=== PATIENT | female | born 1950 | race Caucasian/White ===

== ENCOUNTER 2020-06-18 12:21 | Outpatient (REF) | payer OTHER, SELFPAY | END 2020-06-18 12:22 | disposition home or self-care (01) | LOC: HO.LNP 12:21 | PROVIDERS: Visit Provider Hospitalist | DX: Z20.828 Contact with and (suspected) exposure to other viral communicable diseases (principal) | CPT/HCPCS: 87635 ==

== ENCOUNTER 2021-06-27 08:40 | Outpatient (REF) | payer OTHER, SELFPAY ==
[2021-06-27 12:13] LABS: Alanine Aminotransferase 18 U/L (0-31); Anion Gap 12 (12-20); Aspartate Amino Transferase 21 U/L (5-31); Blood Urea Nitrogen 12 mg/dL (9-16); Calcium 9.9 mg/dL (8.4-10.2); Carbon Dioxide 29 mmol/L (22-29); Chloride 105 mmol/L (96-108); Cholesterol 201 mg/dL; Estimated Glomerular Filt Rate > 60; Glucose Fasting 94 mg/dL (60-99); HDL Cholesterol 76 mg/dL; LDL Cholesterol Calculated 115 mg/dl; Potassium 4.9 mmol/L (3.3-5.1); Sodium 141 mmol/L (135-145); Triglycerides 53 mg/dL
[2021-06-27 12:16] LABS: Vitamin D 25-OH Total 53.1 ng/mL (>30)
== END 2021-06-27 08:41 | disposition home or self-care (01) ==
LOC: HO.HMGCLDS 08:40
PROVIDERS: PCP Internal Medicine; Visit Provider Internal Medicine
DX: Z00.01 Encounter for general adult medical examination with abnormal findings (principal); I10 Essential (primary) hypertension; Z78.0 Asymptomatic menopausal state
CPT/HCPCS: 36415; 80048; 80061; 82306; 84450; 84460

== ENCOUNTER 2022-02-15 13:43 | Outpatient (REF) | payer MEDICARE, SELFPAY ==
[2022-02-15 16:30] LABS: MANUAL DIFF FLAG NO
[2022-02-15 16:34] LABS: Basophils Absolute Auto 0.1 X10*3/uL (0.0-0.2); Basophils Percent Auto 0.9 % (0-2); Eosinophils Absolute Auto 0.1 X10*3/uL (0.0-0.4); Eosinophils Percent Auto 1.7 % (0-4); Hemoglobin 13.7 g/dl (12.0-16.0); Imm Gran Abs Auto 0.01 X10*3/uL (0.00-0.03); Imm Gran Pct Auto 0.2 % (0.0-0.4); Lymphocytes Absolute Auto 1.9 X10*3/uL (1.2-4.9); Mean Corpuscular HGB Conc 31.1 g/dl (31.0-35.0); Mean Corpuscular Hemoglobin 25.4 pg (27.0-33.0); Mean Corpuscular Volume 81.6 fL (80.0-98.0); Mean Platelet Volume 10.6 fL (9.4-12.3); Monocytes Absolute Auto 0.4 X10*3/uL (0.1-1.2); Neutrophils Absolute Auto 2.9 x10*3/uL (2.0-8.3); Neutrophils Percent Auto 53.2 % (45-73); Platelet Count 234 X10*3/uL (160-400); Red Blood Count 5.39 X10*6/uL (4.20-5.50); Red Cell Distribution Width 14.2 % (11.0-16.0); White Blood Count 5.4 X10*3/uL (4.8-10.8)
[2022-02-15 16:39] LABS: Glucose Fasting 82 mg/dL (60-99)
== END 2022-02-15 13:44 | disposition home or self-care (01) ==
LOC: HO.HMGCLDS 13:43
PROVIDERS: Visit Provider Internal Medicine
DX: Z01.818 Encounter for other preprocedural examination (principal)
CPT/HCPCS: 36415; 82947; 85025

== ENCOUNTER 2023-02-05 08:30 | Outpatient (REF) | payer MEDICARE, SELFPAY ==
--- NOTE | ~2023-02-05 | XR_ITS ---
EXAMINATION: XR SHOULDER, RIGHT CLINICAL INFORMATION: Pain COMPARISON: None available. TECHNIQUE: Three views of the right shoulder. FINDINGS: Bone alignment is normal. No fracture or dislocation. The glenohumeral joint is normal. There may be mild joint space narrowing at the acromioclavicular joint. Soft tissues are unremarkable. XR/XR shoulder RT min 2V IMPRESSION: Mild degenerative changes at the acromioclavicular joint.
== END 2023-02-05 08:31 | disposition home or self-care (01) ==
LOC: HO.HOSX 08:30
PROVIDERS: Visit Provider Orthopaedic Surgery
DX: M75.51 Bursitis of right shoulder (principal)
CPT/HCPCS: 20610; 73030; 99202; J1100

== ENCOUNTER 2023-02-22 09:34 | Outpatient (REF) | payer MEDICARE, SELFPAY ==
[2023-02-22 12:09] LABS: Alanine Aminotransferase 15 U/L (0-31); Albumin Level 4.6 g/dL (3.5-5.0); Alkaline Phosphatase 86 U/L (39-117); Anion Gap 9 (12-20); Aspartate Amino Transferase 18 U/L (5-31); Bilirubin Total 0.7 mg/dL (0.0-1.0); Blood Urea Nitrogen 20 mg/dL (9-16); Calcium 9.4 mg/dL (8.4-10.2); Carbon Dioxide 28 mmol/L (22-29); Chloride 108 mmol/L (96-108); Cholesterol 216 mg/dL; Estimated Glomerular Filt Rate > 60; Glucose Fasting 101 mg/dL (60-99); HDL Cholesterol 84 mg/dL; LDL Cholesterol Calculated 123 mg/dl; Potassium 4.3 mmol/L (3.3-5.1); Sodium 141 mmol/L (135-145); TSH reflex Free T4 0.71 uIU/mL (0.32-4.0); Total Protein 7.6 g/dL (6.5-8.0); Triglycerides 49 mg/dL; Vitamin D 25-OH Total 61.4 ng/mL (>30)
== END 2023-02-22 09:35 | disposition home or self-care (01) ==
LOC: HO.HMGCLDS 09:34
PROVIDERS: PCP Internal Medicine; Visit Provider Internal Medicine
DX: Z00.01 Encounter for general adult medical examination with abnormal findings (principal); R68.89 Other general symptoms and signs; M85.88 Other specified disorders of bone density and structure, other site
CPT/HCPCS: 36415; 80053; 80061; 82306; 84443; 86787

== ENCOUNTER 2023-04-19 12:20 | Outpatient (AMB) | payer MEDICARE, SELFPAY ==
--- NOTE | 2023-04-19 12:24 | A.OFFVIS_ITS ---
Intake Vital Signs 04/19/23 12:26 Height 5 ft Weight 147 lb BMI 28.7 Intake Visit Reasons: OV - Right Shoulder Intake Note: Samaria is a 72 year old right hand dominant female who presents today for a follow up of her right shoulder bursitis. Last Injection 02/05/23. This injection was not helpful and she would like to discuss other treatment options. Allergies No Known Allergies Allergy (Verified 02/22/23 09:17) HPI OV - Right Shoulder HPI Details Samaria Abraham is a 72-year-old female who presents today to the office for a follow-up of right shoulder. The patient's last injection was on 02/05/23, which provided no relief. She describes sub deltoid pain with overhead activity and pain at night. Supervised exercises have not been helpful. [facility] Medical History (Updated 04/19/23 @ 12:50 by Wilfredo Ceballos MD) Hx of gallstones Immunity status testing Internal derangement of right shoulder Osteopenia of lumbar spine Tubular adenoma of colon Uterine prolapse Surgical History History of vaginal hysterectomy Hx laparoscopic cholecystectomy Hx of appendectomy Hx of colonoscopy Hx of tonsillectomy Family History Father Diabetes mellitus Mother Diabetes mellitus CVA (cerebral vascular accident) Sister Hypertension Social History Housing: House Patient Tobacco Use Status: Never used Tobacco e-Cigarette/Vaping Use: Never Used service: No 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 occupational status: retired 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 Cognitive needs: No Hearing needs: No Vision needs: No Physical Exam Vital Signs: BMI result Body Mass Index 28.7 Const General: no acute distress, alert and awake Orientation/consciousness: patient oriented x3 HEENT Head: Yes normocephalic and Yes atraumatic Eyes EOM: EOMs intact bilaterally Resp Effort & Inspection: normal respiratory effort and able to speak in complete sentences Cardio Jugular venous distension: no JVD Skin General skin exam: turgor normal Rashes: no rashes Neuro General: patient oriented x3 Extrem Other: 90/130/45 Painful but negative mepty can Negative lift off Psych Appearance: grossly normal Affect: normal affect Attitude: cooperative Results Reviewed Results Reviewed: I personally reviewed relevant radiographs. 02/05/23: XR SHOULDER, RIGHT FINDINGS: Bone alignment is normal. No fracture or dislocation. The glenohumeral joint is normal. There may be mild joint space narrowing at the acromioclavicular joint. Soft tissues are unremarkable. IMPRESSION: Mild degenerative changes at the acromioclavicular joint. Assessment & Plan Assessment & Plan (1) Internal derangement of right shoulder: Code(s): M24.811 - Other specific joint derangements of right shoulder, not elsewhere classified Plan: Active and healthy 72 yo with ongoing right shoulder pain that has not improved with activity modification, injections or PT. MRI ordered to evaluate RTX. Orders: Orders MR shoulder RT wo con 04/19/23 M24.811 - Other specific joint derangements of right shoulder, not elsewhere classified Coding Level of Care Code Est Pt Level 4 (22496) Diagnoses Internal derangement of right shoulder M24.811
[2023-04-19 12:26] VITALS: BMI 28.7
== END 2023-04-19 12:58 | disposition home or self-care (01) ==
PROVIDERS: PCP Internal Medicine; Visit Provider Orthopaedic Surgery
DX: M24.811 Other specific joint derangements of right shoulder, not elsewhere classified (principal)
CPT/HCPCS: 99214

== ENCOUNTER → 2023-04-19 12:20 | Outpatient (BNVA) | payer MEDICARE, SELFPAY | PROVIDERS: PCP Internal Medicine; Visit Provider Orthopaedic Surgery | DX: M24.811 Other specific joint derangements of right shoulder, not elsewhere classified (principal) | CPT/HCPCS: 99212 ==

== ENCOUNTER 2023-06-08 07:51 | Outpatient (REF) | payer MEDICARE, SELFPAY | END 2023-06-08 07:52 | disposition home or self-care (01) | LOC: HO.MRI 07:51 | PROVIDERS: PCP Internal Medicine; Visit Provider Orthopaedic Surgery | DX: M24.811 Other specific joint derangements of right shoulder, not elsewhere classified (principal) | CPT/HCPCS: 73221 ==

== ENCOUNTER 2023-06-15 11:09 | Outpatient (AMB) | payer MEDICARE, SELFPAY ==
--- NOTE | 2023-06-15 11:40 | A.OFFVIS_ITS ---
Intake Vital Signs 06/15/23 11:52 Height 5 ft Weight 147 lb BMI 28.7 Intake Visit Reasons: ov-MRI Shoulder RT review Intake Note: Samaria is a 72 year old right hand dominant female who presents today for an MRI review of her right shoulder. Patient reports that she is feeling about the same. Allergies No Known Allergies Allergy (Verified 02/22/23 09:17) HPI ov-MRI Shoulder RT review HPI Details Samaria is a 72 year old woman who presents for an MRI review of her right shoulder pain. She continues to complain of pain with daily activity, worse with overhead activity but primarily at night, in a sub-deltoid distribution. She found no relief from activity modification, injections, or PT. She feels limited in her activity and is frustrated that she cannot do everything she wants to. [facility] Medical History (Updated 06/15/23 @ 12:13 by Angel Bolden) Internal derangement of right shoulder Immunity status testing Hx of gallstones Uterine prolapse Osteopenia of lumbar spine Tubular adenoma of colon Surgical History (Reviewed 04/19/23 @ 12:26 by Jeni Dickey [facility]) Hx laparoscopic cholecystectomy History of vaginal hysterectomy Hx of colonoscopy Hx of appendectomy Hx of tonsillectomy Family History Father Diabetes mellitus Mother Diabetes mellitus CVA (cerebral vascular accident) Sister Hypertension Social History Housing: House Patient Tobacco Use Status: Never used Tobacco e-Cigarette/Vaping Use: Never Used service: No 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 occupational status: retired 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 Cognitive needs: No Hearing needs: No Vision needs: No Review of Systems Const All systems reviewed & are unremarkable except as noted in HPI and below Physical Exam Vital Signs: BMI result Body Mass Index 28.7 Const General: no acute distress, alert and awake Orientation/consciousness: patient oriented x3 HEENT Head: Yes normocephalic and Yes atraumatic Eyes EOM: EOMs intact bilaterally Resp Effort & Inspection: normal respiratory effort and able to speak in complete sentences Cardio Jugular venous distension: no JVD Skin General skin exam: turgor normal Rashes: no rashes Neuro General: patient oriented x3 Extrem Other: Right Shoulder 90/130/45 Painful but negative empty can Negative lift off Psych Appearance: grossly normal Affect: normal affect Attitude: cooperative Results Reviewed Results Reviewed: I personally reviewed relevant MR images 1. Supraspinatus tendinosis with irregular full-thickness partial tearing anteriorly extending to the posterior articular surface and articular surface of the infraspinatus tendon. The full-thickness component to the tear measures 1.8 x 2.3 cm. Mild subscapularis tendinosis with articular surface partial tearing. 2. Mild acromioclavicular osteoarthritis with subacromial spurring. 3. Small glenohumeral joint effusion. Assessment & Plan Assessment & Plan (1) Right rotator cuff tear: Code(s): M75.101 - Unspecified rotator cuff tear or rupture of right shoulder, not specified as traumatic Plan: This is a 72 year old woman with a right RTC tear and ~6 months of pain. She has pain with daily activity, worse with overhead activity and at night. She has failed conservative treatment options and feels limited in her ADLs. I discussed her diagnosis and treatment options. I recommend a right shoulder RTC repair. I discussed the risks, benefits, and alternatives including, but not limited to, the risk of pain, infection, stiffness, need for further surgery as well as potential medical complications such as blood clots, pulmonary embolism and cardiac complications. I discussed the recovery timeline and process as well as the importance of PT. Samaria is a good candidate for this surgery, and she wishes to proceed with this decision. She will speak with Sheri to schedule this procedure. Plan Scribed for Wilfredo Ceballos MD by Angel Bolden medical assisting program director, on 06/15/23 at 12:15 PM, EST. Coding Level of Care Code Est Pt Level 4 (89159) Diagnoses Right rotator cuff tear M75.101
[2023-06-15 11:52] VITALS: BMI 28.7
== END 2023-06-15 12:16 | disposition home or self-care (01) ==
PROVIDERS: PCP Internal Medicine; Visit Provider Orthopaedic Surgery
DX: M75.121 Complete rotator cuff tear or rupture of right shoulder, not specified as traumatic (principal)
CPT/HCPCS: 99214

== ENCOUNTER → 2023-06-15 11:09 | Outpatient (BNVA) | payer MEDICARE, SELFPAY | PROVIDERS: PCP Internal Medicine; Visit Provider Orthopaedic Surgery | DX: M75.101 Unspecified rotator cuff tear or rupture of right shoulder, not specified as traumatic (principal) | CPT/HCPCS: 99212 ==

== ENCOUNTER 2023-07-04 06:02 | Day surgery (SDC) | payer MEDICARE, SELFPAY ==
[2023-07-02 08:49] VITALS: BMI 28.7
--- NOTE | 2023-07-03 10:13 | HO.ANESPROP2 ---
Documented by User: Sonia Gupta NP 07/03/23 10:16 HPI - Anesthesia Eval Consult details Narrative: 72yo F for Right Shoulder Rotator Cuff Repair PMFSH Active Problems Active Problems: All Active Problems (Updated 06/15/23 @ 12:13 by Angel Bolden) Right rotator cuff tear (Acute) Internal derangement of right shoulder (Acute) Immunity status testing (Acute) Bursitis of right shoulder (Acute) Osteopenia of lumbar spine (Acute) Glaucoma (Acute) Past Medical History Medical History (Updated 06/15/23 @ 12:13 by Angel Bolden) Internal derangement of right shoulder Immunity status testing Hx of gallstones Uterine prolapse Osteopenia of lumbar spine Tubular adenoma of colon Family History Family History Father Diabetes mellitus Mother Diabetes mellitus CVA (cerebral vascular accident) Sister Hypertension Surgical History Surgical History Hx laparoscopic cholecystectomy History of vaginal hysterectomy Hx of colonoscopy Hx of appendectomy Hx of tonsillectomy Social History Social History Housing: House Patient Tobacco Use Status: Never used Tobacco e-Cigarette/Vaping Use: Never Used Use of substances other than those prescribed or required for medical reasons: No Are you DNR?: No Advance Directives: No Advance Directives Information Provided: Yes service: No 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 occupational status: 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 Cognitive needs: No Hearing needs: No Vision needs: No Meds Allergies Allergy/AdvReac Type Severity Reaction Status Date / Time No Known Allergies Allergy Verified 02/22/23 09:17 Home Medications Medication Instructions Recorded Confirmed Last Taken Type ascorbate calcium (vitamin C) 500 1 g PO DAILY 02/15/22 Unknown History mg tablet calcium carbonate 600 mg calcium 600 mg PO DAILY 02/15/22 Unknown History (1,500 mg) tablet (Calcium) cholecalciferol (vitamin D3) 50 50 mcg PO DAILY 02/15/22 Unknown History mcg (2,000 unit) capsule omega-3 fatty acids 500 mg capsule 500 mg PO DAILY 02/15/22 Unknown History dorzolamide 22.3 mg-timolol 6.8 1 drp ophthalmic (eye) BID 02/22/23 Unknown History mg/mL eye drops Exam Exam Date and Time: July 03, 2023 1013 Height,Weight and Vital Signs: Height 5 ft Weight 66.678 kg Pertinent Lab Results Pertinent Lab Results: Laboratory Tests 02/22/23 09:41 Sodium 141 Potassium 4.3 Chloride 108 Carbon Dioxide 28 BUN 20 H Creatinine 0.67 Assessment and Plan Assessment Anesthesia Assessment: Chart Reviewed Documented by User: Sukh Miguel MD 07/04/23 08:04 [facility] Past Medical History Medical History (Updated 06/15/23 @ 12:13 by Angel Bolden) Internal derangement of right shoulder Immunity status testing Hx of gallstones Uterine prolapse Osteopenia of lumbar spine Tubular adenoma of colon Family History Family History Father Diabetes mellitus Mother Diabetes mellitus CVA (cerebral vascular accident) Sister Hypertension Family history of problems with anesthesia: No Surgical History Surgical History Hx laparoscopic cholecystectomy History of vaginal hysterectomy Hx of colonoscopy Hx of appendectomy Hx of tonsillectomy History of Problems with Anesthesia: No Social History Social History Housing: House Patient Tobacco Use Status: Never used Tobacco e-Cigarette/Vaping Use: Never Used Use of substances other than those prescribed or required for medical reasons: No Are you DNR?: No Advance Directives: No Advance Directives Information Provided: Yes service: No 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 occupational status: 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 Cognitive needs: No Hearing needs: No Vision needs: No Meds Allergies Allergy/AdvReac Type Severity Reaction Status Date / Time No Known Allergies Allergy Verified 02/22/23 09:17 Home Medications Medication Instructions Recorded Confirmed Last Taken Type ascorbate calcium (vitamin C) 500 1 g PO DAILY 02/15/22 Unknown History mg tablet calcium carbonate 600 mg calcium 600 mg PO DAILY 02/15/22 Unknown History (1,500 mg) tablet (Calcium) cholecalciferol (vitamin D3) 50 50 mcg PO DAILY 02/15/22 Unknown History mcg (2,000 unit) capsule omega-3 fatty acids 500 mg capsule 500 mg PO DAILY 02/15/22 Unknown History dorzolamide 22.3 mg-timolol 6.8 1 drp ophthalmic (eye) BID 02/22/23 Unknown History mg/mL eye drops Exam Airway Mallampati Class: II TM Dist: >3cm Neck ROM: Full Heart: rrr Lungs: cta Assessment and Plan Assessment Anesthesia Assessment: Anesthesia Plan Discussed Final Anesthetic Review Family History of Problems with Anesthesia: No History of Problems with Anesthesia: No NPO: Yes ASA Class: II Final Preanesthetic Review: No Changes in Pt Med Stat and Anes Risks/Benef Reviewed Patient Risk: Low Procedure Risk: Intermediate Anesthetic Plan Anesthetic Plan: GA and Regional Block Disposition: Standard PACU
[2023-07-04 06:20] VITALS: BP 178/89; PULSE 82; RESP 16; TEMP 36.7; O2SAT 100
[2023-07-04] MEDS: Lactated Ringers 1,000 ML 100 ML IVCONT (06:40)
--- NOTE | 2023-07-04 07:47 | MHC.SHP ---
Pre-Procedural Eval Section A Date of Service: 07/04/23 The patient is an INPATIENT: No Changes since office visit: No Cold of Flu in the past 2 weeks, No New Medical Problems, No Changes in Medication and No Patient answered all questions The History & Physical has been completed within 30 days and I have reviewed it.: Yes Section B Chief Complaint: Unspecified rotator cuff tear or rupture of right Allergies: Allergies Allergy/AdvReac Type Severity Reaction Status Date / Time No Known Allergies Allergy Verified 02/22/23 09:17 Plan I have reviewed the history and physical and performed a pertinent physical examination on my patient. No changes have occurred unless specified. Time Spent With Patient Time: Total time managing care of this patient today ____ minutes.
--- NOTE | 2023-07-04 08:51 | P.BOP_ITS ---
Brief Operative Note Date of Service: 07/04/23 Pre-op diagnosis: Right RTC tear Post-op diagnosis: same Procedure: Right RTC repair with SAD Implants: [employer] Helacoil double loaded x 2 and Helacoil knotless x2 Surgeon: Wilfredo Ceballos MD Anesthesia: GETA and regional Was an Wireless Internet Installer used for this Procedure?: Yes Wireless Internet Installer: Brandi Messer Estimated blood loss (mL): 25 IV fluids (mL): 600 Pathology: none sent Condition: stable Disposition: PACU
[2023-07-04 09:10] VITALS: BP 141/72; PULSE 68; RESP 10; TEMP 35.9; O2SAT 100
[2023-07-04 09:15] VITALS: BP 135/75; PULSE 74; RESP 12; O2SAT 100
[2023-07-04 09:20] VITALS: BP 132/65; PULSE 71; RESP 12; O2SAT 97
[2023-07-04 09:25] VITALS: BP 123/68; PULSE 73; RESP 14; TEMP 35.9; O2SAT 96
[2023-07-04 09:40] VITALS: BP 141/71; PULSE 69; RESP 14; TEMP 36; O2SAT 96
--- NOTE | 2023-07-09 11:38 | W.PM.OPN ---
Operative Note Operative Note Date of Service: 07/04/23 Narrative: Date of Service: 07/04/23 Pre-op diagnosis: Right RTC tear Post-op diagnosis: same Procedure: Right RTC repair with SAD Implants: [employer] Helacoil double loaded x 2 and Helacoil knotless x2 Surgeon: Wilfredo Ceballos MD Anesthesia: GETA and regional Was an Data Warehousing Specialist used for this Procedure?: Yes Data Warehousing Specialist: Brandi Messer Estimated blood loss (mL): 25 IV fluids (mL): 600 Pathology: none sent Condition: stable Disposition: PACU Procedure in detail: Patient was brought to the operating room and placed the the beach chair position. All bony prominences were well padded and the limb was prepped and draped in standard sterile fashion. A time out was called to identify proper site, proper procedure and proper surgeon. IV antibiotics per weight were administered. I began by making a posterolateral stab incision with a 15 blade. A blunt trochar was placed into the glenohumeral joint and I insufflated the joint with saline and a 30 degree arthroscope was placed. I established an outside- in anterior portal just distal to the biceps tendon. I then began my inspection of the glenohumeral joint. There was mild anterior interval synovitis. There were minimal cartilage changes at the inferior glenoid and no humeral head changes. There was a full thickness undersurface RTC tear. The subcapularis was intact. I debrided the loose cartilage of the glenoid and the superior labrum. I then removed the trochar and entered the subacromial space. A direct lateral portal was then established and I performed a bursectomy. The cuff was then examined. There was a full thickness tear of the supra and infraspinatus without retraction. The tear was mobile. I placed two medial row double loaded anchors after using a tap just adjacent to the articular cartilage and then brought the suture limbs ( 8) through the medial cuff. I then debrided the bare area down to bleeding bone and, using a cross bridge configuration, brought 4 limbs to each of two lateral 5.0 anchors. This re-approximated the cuff anatomy anatomically. I perfromed a 5mm subacromial decompression. Once I was satisfied with the repair final images were captured and I removed all instrumentation. Portals were closed with nylon. Patient was placed in an abduction sling, extubated and brought to the recovery room in stable condition. There were no known complications.
== END 2023-07-04 10:20 | disposition home or self-care (01) ==
PROVIDERS: PCP Internal Medicine; Visit Provider Orthopaedic Surgery
PROC: (CPT 29827; principal; 2023-07-04 07:30)
DX: M75.121 Complete rotator cuff tear or rupture of right shoulder, not specified as traumatic (principal)
CPT/HCPCS: 29827; 29826; C1713; J0131; J0171; J0690; J1100; J1885; J2405; J2795

== ENCOUNTER → 2023-07-04 06:02 | Outpatient (BNV) | payer MEDICARE, SELFPAY | PROVIDERS: PCP Internal Medicine; Visit Provider Orthopaedic Surgery | DX: M75.121 Complete rotator cuff tear or rupture of right shoulder, not specified as traumatic (principal) | CPT/HCPCS: 29827 ==

== ENCOUNTER 2023-07-10 10:32 | Outpatient (AMB) | payer MEDICARE, SELFPAY ==
--- NOTE | 2023-07-10 10:35 | A.OFFVIS_ITS ---
Intake Vital Signs 07/10/23 10:44 Height 5 ft 1 in Weight 140 lb BMI 26.4 Intake Visit Reasons: PO - Rt RTC Repair 07/04/23 NE Intake Note: Samaria is a 72 year old female who presents today for a post op appointment s/p right RTC repair 07/04/23 NE. Patient reports she is doing slightly feeling better. She states that she noticed a burn brianna on her chest. Allergies No Known Allergies Allergy (Verified 07/10/23 10:36) HPI PO - Rt RTC Repair 07/04/23 NE HPI Details 72-year-old female who presents in the o ffice today 6 days status post right shoulder rotator cuff repair, which was performed on 07/04/[address] Ceballos. The patient reports she is doing slightly better. She states she has noticed skin tear on her chest. [facility] Medical History (Updated 07/10/23 @ 10:43 by Diann Dela Cruz) Internal derangement of right shoulder Immunity status testing Hx of gallstones Uterine prolapse Osteopenia of lumbar spine Tubular adenoma of colon Surgical History (Updated 07/05/23 @ 13:47 by Brandi Messer PA-C) Hx laparoscopic cholecystectomy History of vaginal hysterectomy Hx of colonoscopy Hx of appendectomy Hx of tonsillectomy Family History Father Diabetes mellitus Mother Diabetes mellitus CVA (cerebral vascular accident) Sister Hypertension Social History Housing: House Patient Tobacco Use Status: Never used Tobacco e-Cigarette/Vaping Use: Never Used service: No 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 occupational status: retired 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 Sutures intact. No surround erythema or drainage. Resolving ecchymosis as well as a superficial skin tear over the right lateral aspect of the sternum. No signs of infection. Forward flexion and abduction to 45 degrees. External rotation to neutral. NVI. Assessment & Plan Assessment & Plan (1) Right rotator cuff tear: Code(s): M75.101 - Unspecified rotator cuff tear or rupture of right shoulder, not specified as traumatic Qualifiers: Rotator cuff tear extent: unspecified tear extent Rotator cuff tear trauma status: unspecified whether traumatic Qualified Code(s): M75.101 - Unspecified rotator cuff tear or rupture of right shoulder, not specified as traumatic Plan Ms. Abraham is a 72-year-old female who presents in the office today 6 days status post right shoulder rotator cuff repair, which was performed on 07/04/[address] Ceballos. The patient reports she is doing slightly better. She states she has noticed a burn brianna on her chest. Sutures were removed and steri-stripes were applied while in the office today. The patient does not currently having any physical therapy scheduled at this time. Therefore, the office has placed a call to the physical therapy office for them to reach out to her to get her scheduled as soon as possible. The sling will remain in place until 6 weeks post op. Follow up will be in 4 weeks, or sooner if needed. Patient Instructions: Scribed for Brandi Messer PA-C by Diann Dela Cruz certified medical records coder, on 07/10/2023 at 10:38 am, EST. Coding Level of Care Code Global (39880) Diagnoses Tear of right rotator cuff, unspecified tear extent, unspecified whether traumatic M75.101 Rotator cuff tear extent: unspecified tear extent Rotator cuff tear trauma status: unspecified whether traumatic
[2023-07-10 10:44] VITALS: BMI 26.4
== END 2023-07-10 11:02 | disposition home or self-care (01) ==
PROVIDERS: PCP Internal Medicine; Visit Provider Physician Assistant
DX: M75.101 Unspecified rotator cuff tear or rupture of right shoulder, not specified as traumatic (principal)
CPT/HCPCS: 99024

== ENCOUNTER → 2023-07-10 10:32 | Outpatient (BNVA) | payer MEDICARE, SELFPAY | PROVIDERS: PCP Internal Medicine; Visit Provider Physician Assistant ==

== ENCOUNTER 2023-08-09 10:57 | Outpatient (AMB) | payer MEDICARE, SELFPAY ==
--- NOTE | 2023-08-09 10:59 | MHC.OFFVIS ---
Intake Intake Visit Reasons: PO - Rt RTC Repair 07/04/23 NE-F/U Intake Note: Samaria is a 72 year old female who presents today for a post op appointment s/p right RTC repair 07/04/23 NE. Patient reports that that she is doing well, with no concerns. She is working with physical therapy. Allergies No Known Allergies Allergy (Verified 07/10/23 10:36) HPI PO - Rt RTC Repair 07/04/23 NE-F/U HPI Details Samaria is a 73 year old woman who presents ~5 weeks S/P right RTC repair with SAD. She says she is doing well overall and has been working with PT. She continues to wear her sling and says her shoulder feels good . She has some difficulty & pain with any attempts at overhead activity. FORMERLY [facility], [facility] Medical History (Updated 07/10/23 @ 10:43 by Diann Dela Cruz) Internal derangement of right shoulder Immunity status testing Hx of gallstones Uterine prolapse Osteopenia of lumbar spine Tubular adenoma of colon Surgical History (Updated 07/05/23 @ 13:47 by Brandi Messer PA-C) Hx laparoscopic cholecystectomy History of vaginal hysterectomy Hx of colonoscopy Hx of appendectomy Hx of tonsillectomy Family History Father Diabetes mellitus Mother Diabetes mellitus CVA (cerebral vascular accident) Sister Hypertension Social History Housing: House Patient Tobacco Use Status: Never used Tobacco e-Cigarette/Vaping Use: Never Used service: No Current occupational status: retired 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 Cognitive needs: No Hearing needs: No Vision needs: No Review of Systems Const All systems reviewed & are unremarkable except as noted in HPI and below Physical Exam Const General: no acute distress, alert and awake Orientation/consciousness: patient oriented x3 HEENT Head: Yes normocephalic and Yes atraumatic Eyes EOM: EOMs intact bilaterally Resp Effort & Inspection: normal respiratory effort and able to speak in complete sentences Cardio Jugular venous distension: no JVD Skin General skin exam: turgor normal Rashes: no rashes Neuro General: patient oriented x3 Extrem Other: inc c/d/i Psych Appearance: grossly normal Affect: normal affect Attitude: cooperative Assessment & Plan Assessment & Plan (1) S/P rotator cuff repair: Code(s): Z98.890 - Other specified postprocedural states Plan: Jyoti Beasley d/c sliong in one week and I reviewed precautions and exercises. f/u 6 weeks Plan Scribed for Wilfredo Ceballos MD by Angel Bolden, regional medical director, on 08/09/23 at 11:25 AM, EST. Coding Level of Care Code Global (24949) Diagnoses S/P rotator cuff repair Z98.890
== END 2023-08-09 13:09 | disposition home or self-care (01) ==
PROVIDERS: PCP Internal Medicine; Visit Provider Orthopaedic Surgery
DX: Z98.890 Other specified postprocedural states (principal)
CPT/HCPCS: 99024

== ENCOUNTER → 2023-08-09 10:57 | Outpatient (BNVA) | payer MEDICARE, SELFPAY | PROVIDERS: PCP Internal Medicine; Visit Provider Orthopaedic Surgery | DX: Z47.89 Encounter for other orthopedic aftercare (principal); Z98.890 Other specified postprocedural states | CPT/HCPCS: 99212 ==

== ENCOUNTER 2023-09-20 08:29 | Outpatient (AMB) | payer MEDICARE, SELFPAY ==
--- NOTE | 2023-09-20 07:47 | A.OFFVIS_ITS ---
Intake Vital Signs 09/20/23 08:39 Height 5 ft 1 in Weight 144 lb BMI 27.2 Intake Visit Reasons: PO - Rt RTC Repair 07/04/23 NE Intake Note: Samaria is a 72 year old female who presents today for a post op appointment s/p right RTC repair 07/04/23 NE. She reports overall she is feeling well. She reports some tightness in her shoulder but no pain. Allergies No Known Allergies Allergy (Verified 09/20/23 08:38) Medication List - Last Reconciled 09/20/23 by Kristi Mackey, RN ascorbate calcium (vitamin C) 1 g PO DAILY calcium carbonate (Calcium) 600 mg PO DAILY cholecalciferol (vitamin D3) 50 mcg PO DAILY dorzolamide-timolol 22.3-6.8 mg/mL 1 drp ophthalmic (eye) BID morphine ER (MS Contin) 15 mg PO Q12H 3 days omega-3 fatty acids 500 mg PO DAILY oxycodone-acetaminophen 5-325 mg (Percocet) 1 tab PO Q4-6H PRN 7 days HPI PO - Rt RTC Repair 07/04/23 NE HPI Details Samaria is a 73 year old woman who presents ~11 weeks S/P right RTC repair with SAD. She says she is doing well overall and is happy with the results of her surgery. She denies any pain but reports feeling some tightness in her shoulder with certain motion. She has been working with PT on her ROM, and d/c her sling as instructed. REPLACED BY [facility] Medical History (Updated 07/10/23 @ 10:43 by Diann Dela Cruz) Internal derangement of right shoulder Immunity status testing Hx of gallstones Uterine prolapse Osteopenia of lumbar spine Tubular adenoma of colon Surgical History (Updated 07/05/23 @ 13:47 by Brandi Messer PA-C) Hx laparoscopic cholecystectomy History of vaginal hysterectomy Hx of colonoscopy Hx of appendectomy Hx of tonsillectomy Family History Father Diabetes mellitus Mother Diabetes mellitus CVA (cerebral vascular accident) Sister Hypertension Social History Housing: House Patient Tobacco Use Status: Never used Tobacco e-Cigarette/Vaping Use: Never Used service: No Current occupational status: retired 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 Cognitive needs: No Hearing needs: No Vision needs: No Review of Systems Const All systems reviewed & are unremarkable except as noted in HPI and below Physical Exam Vital Signs: BMI result Body Mass Index 27.2 Const General: no acute distress, alert and awake Orientation/consciousness: patient oriented x3 HEENT Head: Yes normocephalic and Yes atraumatic Eyes EOM: EOMs intact bilaterally Resp Effort & Inspection: normal respiratory effort and able to speak in complete sentences Cardio Jugular venous distension: no JVD Skin General skin exam: turgor normal Rashes: no rashes Neuro General: patient oriented x3 Extrem Other: 10 deg ER 90 deg abd 120 combined gh L5 Psych Appearance: grossly normal Affect: normal affect Attitude: cooperative Assessment & Plan Assessment & Plan (1) S/P rotator cuff repair: Code(s): Z98.890 - Other specified postprocedural states Plan: Doign well but still tight in ER PT for continue ER and light ressitance training as per RTC repair protocol Plan Prepared for Wilfredo Ceballos MD by Angel Bolden, medical insurance coding specialist, on 09/20/23 at 8:40 AM, EST. Coding Level of Care Code Global (06140) Diagnoses S/P rotator cuff repair Z98.890
[2023-09-20 08:39] VITALS: BMI 27.2
== END 2023-09-20 09:02 | disposition home or self-care (01) ==
PROVIDERS: PCP Internal Medicine; Visit Provider Orthopaedic Surgery
DX: Z98.890 Other specified postprocedural states (principal)
CPT/HCPCS: 99024

== ENCOUNTER → 2023-09-20 08:29 | Outpatient (BNVA) | payer MEDICARE, SELFPAY | PROVIDERS: PCP Internal Medicine; Visit Provider Orthopaedic Surgery | DX: Z98.890 Other specified postprocedural states (principal) | CPT/HCPCS: 99212 ==

== ENCOUNTER 2023-10-08 07:00 | Outpatient (RCR) | payer MEDICARE, SELFPAY ==
--- NOTE | 2023-07-24 08:39 | MHC.PT.EP ---
[facility] [place] Office [place] Office [place] Office [address] Kory Whelan [address] [phone] F: [phone] F: [phone] F: [phone] F: [phone] Physical Therapy Plan of Care Date of Evaluation: 07/19/23 Date of Surgery: 07/04/23 Diagnosis: R RTC repair with SAD Assessment: Pt is a 73yo female who presents 16 days s/p arthroscopic RTC repair with SAD. Both supraspinatus and infraspinatus repaired. Pt with moderate pain, good compliance with post-op precautions. However, she is having difficulty sleeping due to discomfort. Skilled PT indicated to progress patient safely through post-op rehabilitation protocol with goal to protect healing tissue, promote full ROM as tolerated, normalize scapulohumeral rhythm to return to PLOF. Pt in agreement with POC and is motivated to participate. Frequency and Duration: The patient will be seen 2x/week x 6 weeks Short Term Goals: 1. Pt will achieve full PROM in 3 weeks R shoulder. 2. Pt will report <3/10 pain with improved ability to sleep by 25% in 3 weeks. 3. Pt will be I with all AAROM and isometric exercises in 3 weeks. [facility] Goals: 1. In 6 weeks, (8 weeks post-op), patient will achieve full AROM R shoulder all planes. 2. In 6 weeks, patient will be able to brush her hair with R UE without difficulty. 3. In 6 weeks, improve SPADI disability score by 50%. Treatment Plan: Modalities to reduce pain, spasms and effusion. Manual therapy to restore motion and function. Therapeutic exercise to improve strength and flexibility. Neuromuscular re-education for posture and balance. Therapeutic activities to return to functional activities of daily living. Electronically signed by: Kira Merino PT, DPT Please sign and return to therapist. Thank you for your referral.
--- NOTE | 2024-03-26 12:22 | MHC.PT.DC ---
[facility] [place] Office [place] Office [place] Office [address] Kory Whelan [address] [phone] F: [phone] F: [phone] F: [phone] F: [phone] Physical Therapy Discharge Report Diagnosis: R RTC repair with SAD Date of Surgery: 07/04/23 Date of Evaluation: 07/19/23 Date of Discharge: 10/15/23 Treatments to Date: 15 Cancellations to Date: No Shows to Date: Discharge Status: Achieved Goals Improved Function Independent with HEP Discharge Summary: Pt is a 73yo female who participated in PT s/p arthroscopic RTC repair with SAD. Pt with good participation, and her ROM and pain greatly improved. Pt progressed safely through post-op rehabilitation protocol return to function phase. Pt is I with HEP and is performing ADLs at a normal level. D/C to HEP at this time. Thank you for this referral. Electronically signed by: Kira Merino PT, DPT Please sign and return to therapist. Thank you for your referral.
== END 2024-03-26 12:24 | disposition home or self-care (01) ==
LOC: HO.PT 07:00
PROVIDERS: Absent Provider Orthopaedic Surgery; PCP Internal Medicine; Visit Provider Physician Assistant
DX: M75.101 Unspecified rotator cuff tear or rupture of right shoulder, not specified as traumatic (principal); Z98.890 Other specified postprocedural states
CPT/HCPCS: 97110; 97140; 97162

== ENCOUNTER 2023-10-31 08:06 | Outpatient (AMB) | payer MEDICARE, SELFPAY ==
[2023-10-31 08:12] VITALS: BMI 27.2
--- NOTE | 2023-10-31 08:12 | A.OFFVIS_ITS ---
Intake Vital Signs 10/31/23 08:12 Height 5 ft 1 in Weight 144 lb BMI 27.2 Intake Visit Reasons: Newprob- LT index finger pain Intake Note: Samaria 73 laurie old right hand dominant female presents today for a new problem visit for her left index finger pain. States that she has been having a burning pain at the base of the left 2nd digit. She only had pain with ROM and if she bumps it or tries to open a jar. Denies numbness and tingling. Allergies No Known Allergies Allergy (Verified 10/31/23 08:15) HPI Newprob- LT index finger pain HPI Details Samaria is a 73 year old right hand dominant woman who presents with complaints of left index finger pain. She reports pain over the A1 varghese of her left index finger with ROM, use, or when struck against something. She says grabbing motions such as to open a jar are painful for her. She describes her pain as burning and has been present for ~4 months. She denies any prior treatment. She denies any falls or known history. She denies any locking of her finger, but reports a hx of bilateral trigger thumbs and a trigger finger on her right hand, which was managed with an injection & surgeries. She says she had a right RTC repair, DOS: 07/04/23, and has been using her left hand more frequently while she recovers. [facility] Medical History (Updated 10/31/23 @ 08:39 by Angel Bolden) Internal derangement of right shoulder Immunity status testing Hx of gallstones Uterine prolapse Osteopenia of lumbar spine Tubular adenoma of colon Surgical History (Updated 07/05/23 @ 13:47 by Brandi Messer PA-C) Hx laparoscopic cholecystectomy History of vaginal hysterectomy Hx of colonoscopy Hx of appendectomy Hx of tonsillectomy Family History Father Diabetes mellitus Mother Diabetes mellitus CVA (cerebral vascular accident) Sister Hypertension Social History Housing: House Patient Tobacco Use Status: Never used Tobacco e-Cigarette/Vaping Use: Never Used service: No Current occupational status: retired 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 Cognitive needs: No Hearing needs: No Vision needs: No Review of Systems Const All systems reviewed & are unremarkable except as noted in HPI and below Physical Exam Vital Signs: BMI result Body Mass Index 27.2 Const General: cooperative, healthy appearing and no acute distress Orientation/consciousness: patient oriented x3 HEENT Head: Yes normocephalic and Yes atraumatic Eyes EOM: EOMs intact bilaterally Resp Effort & Inspection: normal respiratory effort and able to speak in complete sentences Cardio Jugular venous distension: no JVD Skin General skin exam: turgor normal Rashes: no rashes Neuro General: patient oriented x3 Extrem Other: Evaluation of Left Upper Extremity: The patient is alert, oriented, and in no acute distress Neuro: Median, Ulnar, Radial nerves motor and sensory intact and sensation is normal to the tips of all digits Vascular: Cap refill brisk ROM: She can make a fist and extend all her digits No locking or catching, however she is most tender over the left index finger a1 varghese Skin: No lacerations or abrasions. General: No Ecchymosis. No Erythema or evidence of infection. Radiographs: 3 views of the left hand, with attention to the index finger, were taken and viewed by me today in clinic. They show no fractures or dislocations. Psych Appearance: grossly normal Affect: normal affect Attitude: cooperative Office Procedures Fracture Care Details: No fracture, injection Fracture Billing Code: Fracture Billing Code Assessment & Plan Assessment & Plan (1) Tenosynovitis of finger: Code(s): M65.9 - Synovitis and tenosynovitis, unspecified Plan Assessment & Plan: 1. Left index finger pre-trigger tenosynovitis I educated her about this condition I discussed non-operative treatment options The patient would like to proceed with an injection Injection #1: The risks and benefits of a steroid injection including but not limited to risk of damage to blood vessels, nerves, tendons, infection, skin bleaching, failure to improve symptoms, increased pain, and possible need for further injections or other intervention were discussed with the patient and the patient wishes to proceed with the steroid injection. Once consent was obtained, I sterilely prepped the area over the A1 varghese of the flexor tendon sheath of the left index finger. I then injected the flexor tendon sheath with a combination of 1 mL of dexamethasone (4mg/ml), and 1% lidocaine. The patient tolerated the procedure well with no complications. If the patient continues to have locking and catching 4-6 weeks following this injection, they may call to schedule appointment to discuss alternative treatment options Scribed for Arti Minor MD by Angel Bolden certified medical technician, on 10/31/23 at 8:40 AM, EST. Orders: Orders XR hand LT min 3V Today M79.642 - Pain in left hand Coding Level of Care Code New Pt Level 3 (65012) Diagnoses Tenosynovitis of finger M65.9 CPT Codes Fracture Care - Fracture Billing Code: Fracture Billing Code ([id number])
== END 2023-10-31 08:53 | disposition home or self-care (01) ==
PROVIDERS: PCP Internal Medicine; Visit Provider Orthopaedic Surgery
DX: M65.842 Other synovitis and tenosynovitis, left hand (principal)
CPT/HCPCS: 20550; 99203; 99213

== ENCOUNTER 2023-10-31 10:50 | Outpatient (REF) | payer MEDICARE, SELFPAY ==
--- NOTE | ~2023-10-31 | XR_ITS ---
EXAMINATION: XR HAND, LEFT CLINICAL INFORMATION: Pain. COMPARISON: None available. TECHNIQUE: PA, lateral, and oblique views of the left hand. FINDINGS: No fracture or subluxation. Mild multifocal degenerative osteoarthritis with trace joint space narrowing and minimal subcortical sclerosis. No osseous erosions. No abnormal soft tissue calcifications. No significant soft tissue finding. XR/XR hand LT min 3V IMPRESSION: No acute fractures or malalignment. Mild multifocal degenerative osteoarthritis.
== END 2023-10-31 10:51 | disposition home or self-care (01) ==
LOC: HO.HOSX 10:50
PROVIDERS: Visit Provider Orthopaedic Surgery
DX: M79.642 Pain in left hand (principal); M65.9 Synovitis and tenosynovitis, unspecified
CPT/HCPCS: 20550; 73130; 99202; J1100

== ENCOUNTER 2023-12-27 08:19 | Outpatient (AMB) | payer MEDICARE, SELFPAY ==
[2023-12-27 08:22] VITALS: BMI 27.2
--- NOTE | 2023-12-27 08:22 | MHC.OFFVIS ---
Vital Signs 12/27/23 08:22 Height 5 ft 1 in Weight 144 lb BMI 27.2 Intake Visit Reasons: ov-Rt RTC Repair 07/04/23 NE Intake Note: Samaria is a 72 year old right hand dominant female who presents today for a post op appointment s/p right RTC repair 07/04/23 NE. at her last visit she was instructed to continue light resistance training and RTC protocol. Patient reports that she is doing well, she has some mild soreness Allergies No Known Allergies Allergy (Verified 10/31/23 08:15) HPI HPI ov-Rt RTC Repair 07/04/23 NE: Details: Samaria is a 72 year old right hand dominant female who presents today for a post op appointment s/p right RTC repair 07/04/23 NE. at her last visit she was instructed to continue light resistance training and RTC protocol. Patient reports that she is doing well, she has some mild soreness PFSH Medical History Internal derangement of right shoulder Immunity status testing Hx of gallstones Uterine prolapse Osteopenia of lumbar spine Tubular adenoma of colon Surgical History Hx laparoscopic cholecystectomy History of vaginal hysterectomy Hx of colonoscopy Hx of appendectomy Hx of tonsillectomy Family History Father Diabetes mellitus Mother Diabetes mellitus CVA (cerebral vascular accident) Sister Hypertension Social History Housing: House Patient Tobacco Use Status: Never used Tobacco e-Cigarette/Vaping Use: Never Used service: No Current occupational status: retired 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 f/u PRN Coding Level of Care Code Est Pt Level 3 (98378) Diagnoses S/P rotator cuff repair Z98.890
== END 2023-12-27 11:11 | disposition home or self-care (01) ==
PROVIDERS: PCP Internal Medicine; Visit Provider Orthopaedic Surgery
DX: Z47.89 Encounter for other orthopedic aftercare (principal); M75.121 Complete rotator cuff tear or rupture of right shoulder, not specified as traumatic
CPT/HCPCS: 99212

== ENCOUNTER → 2023-12-27 08:19 | Outpatient (BNVA) | payer MEDICARE, SELFPAY | PROVIDERS: PCP Internal Medicine; Visit Provider Orthopaedic Surgery | DX: Z47.89 Encounter for other orthopedic aftercare (principal) | CPT/HCPCS: 99212 ==

== ENCOUNTER 2025-01-30 07:45 | Outpatient (REF) | payer MEDICARE, SELFPAY ==
--- NOTE | ~2025-01-30 | MM_ITS ---
EXAMINATION: DXA BONE DENSITY AXIAL HISTORY: M85.88 TECHNIQUE: Distill Dual energy absorptiometry (DEXA) of the lumbar spine, total left hip, and femoral neck was performed. COMPARISON: Comparison is made with the prior examination dated 10/25/2006. FINDINGS: The bone mineral density of the lumbar spine is 1.065, corresponding to a T-score of -1.0, and a Z-score of 1.0. This is indicative of normal bone mineral density. This represents a BMD change of 2.1% compared to the prior exam. This is not statistically significant. The bone mineral density of the left total hip is 0.969, corresponding to a T-score of -0.3, and a Z-score of 1.5. This is indicative of normal bone mineral density. This represents a BMD change of -4.3% compared to the prior exam. This is statistically significant. The bone mineral density of the left femoral neck is 0.998, corresponding to a T-score of -0.3, and a Z-score of 1.7. This is indicative of normal bone mineral density. This represents a BMD change of 5.2% compared to the prior exam. FRACTURE RISK: The FRAX index suggests a ten year probability of major osteoporotic fracture of 4.5%, and of hip fracture 0.4%. MM/XR DEXA axial skeleton IMPRESSION: Based on bone mineral density, and according to World Health Organization (WHO) criteria, the diagnosis is consistent with normal bone mineral density. All bone density values are in grams per centimeter squared (g/cm2). Statistically, 68% of repeat scans fall within 1 SD (+/- 0.010 g/cm2 for AP spine L1-L4) and 1 SD (+/- 0.012 g/cm2 for femur total) FRAX is a trademark of the [employer]'s [place] [facility] Metabolic Bone Disease, a World Health Organization (WHO) Collaborating Center. Electronically signed by: Rick Thrasher MD 01/30/2025 08:42 AM EDT
--- NOTE | ~2025-01-30 | MM_ITS ---
EXAMINATION: MM SCREENING DIGITAL BREAST TOMOSYNTHESIS, BILATERAL CLINICAL INFORMATION: Screening. Asymptomatic. COMPARISON: Mammography: Comparison is made with available priors TECHNIQUE: Digital breast mammography with tomosynthesis is performed in both the craniocaudal and mediolateral oblique views along with computer-aided detection (CAD). FINDINGS: There are scattered areas of fibroglandular density (ACR BI-RADS breast composition Category b). There are no significant masses, abnormal calcifications, or other abnormalities. MM/MM tomosynthesis screening BI IMPRESSION: No mammographic evidence of malignancy. ASSESSMENT: BI-RADS BI-RADS 1 - Negative RECOMMENDATION: Routine annual mammography screening. 1 year F/U This examination should not preclude the clinical evaluation of a suspicious palpable abnormality. This patient's information was entered into a reminder system with a target due date for their next mammogram. Electronically signed by: Lluvia Conway DO 02/06/2025 05:04 PM EDT
--- OUTSIDE RECORDS SUMMARY | 2025-01-30 07:48 | XMS_ITS | Patient Health Record ---
Author Organization [facility] Address [address] [place] [address] Support Name Relationship Address Phone PHI ROLDAN Guarantor Unknown Reason For Referral No Information Medications Medication SIG (Take, Route, Fr equency, Duration) Notes Start Date End Date Status Vitamin C 500MG 1 ORAL twice daily for -3 [facility] 03/13/20 12 Active Estrace 0.1MG/GM 0.5 grams Vaginal tw ice weekly for -3 [facility] 06/03/2014 Active Calcium-Carb 600 + D 1 ORAL daily for -3 [facility] 2 Active Problems Problem Type SNOMED Code ICD Code Onset Dates Problem Status W/U Status Risk Notes Problem Gynecological examination normal ([id number]) Routine gynecological examination (V72.31) Active confirmed Diag Plan Of Treatment No Information Insurance Providers Payer Name Payer Address Payer Phone Subscriber Number Group Number Insured Name Patient Relationship to Insured Coverage Start Date Coverage End Date [facility] [address] [place] [address] [id number] PHI ROLDAN Self - patient is the insured
== END 2025-01-30 07:46 | disposition home or self-care (01) ==
LOC: HO.MAMMO 07:45
PROVIDERS: PCP Internal Medicine; Visit Provider Internal Medicine
DX: Z12.31 Encounter for screening mammogram for malignant neoplasm of breast (principal); M85.88 Other specified disorders of bone density and structure, other site
CPT/HCPCS: 77063; 77067; 77080

== ENCOUNTER → 2025-01-30 08:15 | Outpatient (BNV) | payer MEDICARE, SELFPAY | PROVIDERS: PCP Internal Medicine; Visit Provider Radiology Diagnostic Radiology | DX: E28.39 Other primary ovarian failure (principal) | CPT/HCPCS: 77080 ==

== ENCOUNTER 2025-02-26 07:56 | Outpatient (REF) | payer MEDICARE, SELFPAY ==
[2025-02-26 10:09] LABS: Hematocrit 39.6 % (37.0-47.0); Hemoglobin 12.4 g/dl (12.0-16.0)
[2025-02-26 10:33] LABS: Anion Gap 14 (12-20); Blood Urea Nitrogen 9 mg/dL (9-16); Calcium 9.3 mg/dL (8.4-10.2); Carbon Dioxide 27 mmol/L (22-29); Chloride 103 mmol/L (96-108); Cholesterol 155 mg/dL (<200); Estimated Glomerular Filt Rate > 60; Glucose Fasting 105 mg/dL (60-99); HDL Cholesterol 41 mg/dL (>40); LDL Cholesterol Calculated 101 mg/dL (<100); Potassium 4.6 mmol/L (3.3-5.1); Sodium 139 mmol/L (135-145); Triglycerides 69 mg/dL (<150)
== END 2025-02-26 07:57 | disposition home or self-care (01) ==
LOC: HO.HMGCLDS 07:56
PROVIDERS: PCP Internal Medicine; Visit Provider Internal Medicine
DX: Z00.01 Encounter for general adult medical examination with abnormal findings (principal); R03.0 Elevated blood-pressure reading, without diagnosis of hypertension; Z78.0 Asymptomatic menopausal state; Z71.89 Other specified counseling; Z13.30 Encounter for screening examination for mental health and behavioral disorders, unspecified; Z13.31 Encounter for screening for depression; Z13.220 Encounter for screening for lipoid disorders; Z13.89 Encounter for screening for other disorder
CPT/HCPCS: 36415; 80048; 80061; 82306; 85014; 85018; 96127; 99397; 99497

== ENCOUNTER 2025-02-26 07:56 | Outpatient (AMB) | payer MEDICARE, SELFPAY ==
--- NOTE | 2025-02-26 07:59 | MHC.PC.OV ---
Vital Signs 02/26/25 08:04 02/26/25 08:45 Height 5 ft Weight 143 lb BMI 27.9 BP 152/80 H 130/80 Blood Pressure Location Lt brachial Rt brachial Position Sitting Sitting Respiration 16 Pulse 94 Pulse Source Pulse Oximeter Temp 98.4 F Temp Source Oral Pulse Oximetry (%) 96 Oxygen Delivery Method Room Air Intake Visit Reasons: ANNUAL PE Intake Note: Pt is here today for her PE: Last mammogram 01/30/25, bone density scan 01/30/25, colonoscopy 01/02/23 Allergies No Known Allergies Allergy (Verified 02/26/25 08:26) Medication List - Last Reconciled 02/26/25 by Marina Nava MD ascorbate calcium (vitamin C) 1 g PO DAILY calcium carbonate (Calcium 600) 600 mg PO DAILY cholecalciferol (vitamin D3) 50 mcg PO DAILY dorzolamide-timolol 22.3-6.8 mg/mL 1 drp ophthalmic (eye) BID omega-3 fatty acids 500 mg PO DAILY Tobacco use date assessed: 02/26/25 Fall risk assessment: No Falls in past year Last assessed Fall Risk: 02/26/25 Dental Screening Dental Screen Date: 02/26/25 Did you have a dental visit in the last 12 months?: Yes Did you have a dental problem in the last 6 months where you did not have access to dental care?: No Was dental information given to patient?: Patient has dentist HPI ANNUAL PE HPI Details 74-year-old lady history of 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 She has been checking her blood pressure at home and it has always been running around 130/80 or lower. Has been exercising and following healthy diet, feels well with no complaints at present time. She is currently followed by [facility] for her glaucoma. She is up-to-date with her breast cancer and colon cancer screening, with last mammogram done 01/30/25 together with her, bone density scan , both of which showed normal findings. She is up-to-date with her colon cancer screening with last colonoscopy done 01/02/[address] Johnson which showed normal findings but due to history of tubular adenoma in the past, repeat colonoscopy again to be done in 2027. [facility] Medical History (Updated 02/26/25 @ 08:54 by Marina Nava MD) Bursitis of right shoulder Right rotator cuff tear White coat syndrome without hypertension Internal derangement of right shoulder Immunity status testing Hx of gallstones Uterine prolapse Osteopenia of lumbar spine Tubular adenoma of colon Surgical History (Updated 02/26/25 @ 08:54 by Marina Nava MD) S/P rotator cuff repair Hx laparoscopic cholecystectomy History of vaginal hysterectomy Hx of colonoscopy Hx of appendectomy Hx of tonsillectomy Family History Father Diabetes mellitus Mother Diabetes mellitus CVA (cerebral vascular accident) Sister Hypertension Social History Housing: House Patient Tobacco Use Status: Never used Tobacco e-Cigarette/Vaping Use: Never Used service: No 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 1. Little interest or pleasure in doing things: not at all 2. Feeling down, depressed, or hopeless: not at all 3. Trouble falling or staying asleep, or sleeping too much: not at all 4. Feeling tired or having little energy: not at all 5. Poor appetite or overeating: not at all 6. Feeling bad about yourself - or that you are a failure or have let yourself or your family down: not at all 7. Trouble concentrating on things, such as reading the newspaper or watching television: not at all 8. Moving or speaking so slowly that other people could have noticed. Or the opposite - being so fidgety or restless that you have been moving around a lot more than usual: not at all 9. Thoughts that you would be better off or of hurting yourself in some way: not at all Total score: 0 Depression Screening Interpretation: Negative Depression Screening Done: Yes 78203 - PHQ-9 Billing: Yes Source: Developed by Drs. Rick Huang, Ruthann Escobar, Aaron Alcaraz and colleagues, with an educational debora from [employer]. Thrive Questionnaire Date Thrive assessed: 06/26/25 I am a: Patient What is your living situation today?: I do not have a steady places to live I choose not to answer this question Within the past 12 months, did the food you bought not last and you didn't have the money to get more?: I choose not to answer this question Within the past 12 months, did you worry whether your food would run out before you got money to buy more?: I choose not to answer this question Do you have trouble paying for medicines?: No Do you have trouble getting transportation to medical appointments?: No Do you have trouble paying your heating and electricity bill?: No Do you have trouble taking care of your child, family member or friend?: No Do you have trouble with day-to-day activities such as bathing, preparing meals, shopping, managing finances, etc.?: No Are you currently unemployed and looking for a job?: Yes Are you interested in more education?: No Please select the resources that you would like help with: None Currently or been in a relationship where the following occur: I choose not to answer THRIVE Score: 1 AUDIT C Alcohol Use Questionnaire (AUDIT-C) 1. How often do you have a drink containing alcohol?: Never Total Score: 0 KELSEY-7 AMB Questionnaire KELSEY-7 Date KELSEY - 7 assessed: 02/26/25 Feeling nervous, anxious, or on edge: 0 = Not at all Not being able to stop or control worryin = Not at all Worrying too much about different things: 0 = Not at all Trouble relaxin = Not at all Being so restless that it is hard to sit still: 0 = Not at all Becoming easily annoyed or irritable: 0 = Not at all Feeling afraid as if something awful might happen: 0 = Not at all Total KELSEY-7 score (0-4 normal; 5-9 mild; 10-14 moderate; 15-21 severe): 0 Source: Developed by Drs. Rick Huang, Ruthann Escobar, Aaron Alcaraz and colleagues, with an educational debora from [employer]. KELSEY-7 Assessment Billing KELSEY-7 Assessment Tool: KELSEY-7 Assessment 09331 Review of Systems Const Denies body aches, Denies fatigue, Denies fever(s), Denies headache(s) and Denies weakness Eyes Denies change in vision, Denies eye discharge, Denies itchy eyes and Reports other (Goes to [facility] [place], currently being treated for glaucoma) ENT Denies vertigo, Denies dizziness, Denies ear discharge, Denies otalgia, Denies headache(s), Denies hearing loss, Denies nasal congestion, Denies nasal discharge, Denies disequilibrium, Reports tinnitus (Occasional, patient states will schedule own appointment for ENT) and Denies sore throat Card Denies chest pain, Denies lightheadedness, Denies palpitations and Denies dyspnea Resp Denies chest congestion, Denies cough, Denies dyspnea and Denies wheezing GI Denies abdominal pain, Denies change in bowel habits and Denies heartburn Denies urinary frequency, Denies dysuria and Denies urinary urgency Musc Reports no additional complaints Skin/Breast Details: Currently being seen at [facility] for routine skin cancer screening Denies lesions and Denies rash Neuro Denies vertigo, Denies dizziness, Denies headache(s), Denies disequilibrium and Denies weakness Psych Reports no additional complaints Endo Denies fatigue, Denies polydipsia, Denies polyuria and Denies palpitations Ricki/Lymph Denies easy bruising Aller/Immun Denies itchy eyes, Denies seasonal rhinorrhea and Denies wheezing Physical exam (Primary Care) Vital Signs: Last Vital Signs Temp 98.4 F 02/26/25 08:04 Pulse 94 02/26/25 08:04 Resp 16 02/26/25 08:04 BP 130/80 02/26/25 08:45 Pulse Ox 96 02/26/25 08:04 Oxygen Delivery Method Room Air 02/26/25 08:04 BMI result Body Mass Index 27.9 Tobacco/Smoking Status: Tobacco use Status Tobacco use date assessed 02/26/25 02/26/25 08:04 Patient Tobacco Use Status Never used Tobacco 02/26/25 08:04 e-Cigarette/Vaping Use Never Used 02/26/25 08:04 PHQ-9: PHQ-9 Score PHQ-9: Total score 0 02/26/25 08:46 Depression Screening Interpretation: Negative Thrive Assessment: Date of Thrive Assessment Date Thrive assessed 02/26/25 02/26/25 08:04 Currently or been in a relationship where the following occur: I choose not to answer Advance Care Planning discussion: Completed/Scanned Date of discussion: 02/26/25 Who was present: Patient Forms completed: Health Care Proxy and MOLST Time spent: 16-45 minutes Actual minutes spent: 3 Const General: no acute distress and alert Orientation/consciousness: patient oriented x3 Limitations: no limitations HENMT Ears: external ears normal General nose exam: Normal external nose present and No nasal discharge present Mouth: oropharynx normal and moist mucous membranes Eyes General: appearance normal, both eyes and all related structures Neck Neck: Yes full ROM, Yes no lymphadenopathy and Yes supple Chest Chest palpation & inspection: normal inspection of the chest Resp Effort & Inspection: normal respiratory effort and able to speak in complete sentences Auscultation: clear to auscultation bilaterally Cardio Rate: regular rate Rhythm: regular rhythm Heart sounds: S1 normal heart sound present and S2 normal heart sound present GI Palpation (GI): Soft to palpation, nontender and no masses Auscultation: normal bowel sounds General: Yes deferred (Status post total hysterectomy) Back/Spine/Pelvis Back: No back tenderness Skin General skin exam: no rashes or lesions noted Neuro General: patient oriented x3, gait normal, tone normal, moves all extremities, Normal light touch and pain sensation and no focal motor deficits Cranial nerves: Yes CN's II-XII intact bilaterally Cognition (Neuro): normal cognition Extrem General: Yes full ROM, Yes no joint enlargement, Yes no clubbing, cyanosis or edema and Yes no calf tenderness Psych Appearance: grossly normal and well kempt Mental Status: mental status grossly normal Affect: normal affect Coding Level of Care Code Est Pt Prev Care >65y(99704) Diagnoses Annual visit for general adult medical examination with abnormal findings Z00.01 White coat syndrome without hypertension R03.0 Advanced directives, counseling/discussion Z71.89 Additional Codes PHQ-9 - 04054 - PHQ-9 Billing: Yes ([id number]) Vital Signs *Quality* - Advance Care Planning discussion: Completed/Scanned ([id number]) Vital Signs *Quality* - Time spent: 16-45 minutes ([id number]) KELSEY-7 Assessment Billing - KELSEY-7 Assessment Tool: KELSEY-7 Assessment 24376 ([id number]) Assessment & Plan Assessment & Plan (1) Annual visit for general adult medical examination with abnormal findings: Code(s): Z00.01 - Encounter for general adult medical examination with abnormal findings Plan: Will check appropriate labs. Continue regular dental visit every 6 months and regular eye exams, goes to [facility] [place]. Take adequate calcium in diet and vitamin-D 3 at 2000 IU per cap once a day, in addition to weight-bearing exercises to help maintain good muscle tone and weight control. Instructed to do self-breast exam, and continue with yearly mammogram, and repeat bone density scan to be done again in 2026. She is up-to-date with her colon cancer screening and with her immunizations (2) White coat syndrome without hypertension: Code(s): R03.0 - Elevated blood-pressure reading, without diagnosis of hypertension Category: Medical Plan: Blood pressure within normal limits. Reinforced importance of following a low-salt diet and regular exercise (3) Advanced directives, counseling/discussion: Code(s): Z71.89 - Other specified counseling Plan: Initiated the conversation about Advanced Directives. Advanced Directives help patients prepare for current and future decisions about their medical treatment and place of care. Discussed with patient that it is a process where a patients current condition and prognosis are reviewed, their wishes for information regarding their illness are elicited, and likely medical dilemmas are presented and options discussed. Healthcare proxy form and MOLST form completed today. These forms can be amended as needed, reviewed yearly and make changes as needed Orders: Orders Lipid Panel 02/26/25 Z00.01 - Encounter for general adult medical examination with abnormal findings, Z13.220 - Encounter for screening for lipoid disorders, Z13.89 - Encounter for screening for other disorder, Z78.0 - Asymptomatic menopausal state Hemoglobin and Hematocrit 02/26/25 Z00.01 - Encounter for general adult medical examination with abnormal findings, Z13.220 - Encounter for screening for lipoid disorders, Z13.89 - Encounter for screening for other disorder, Z78.0 - Asymptomatic menopausal state Basic Metabolic Panel Fasting 02/26/25 Z00.01 - Encounter for general adult medical examination with abnormal findings, Z13.220 - Encounter for screening for lipoid disorders, Z13.89 - Encounter for screening for other disorder, Z78.0 - Asymptomatic menopausal state Vitamin D 25-OH Total 02/26/25 Z00.01 - Encounter for general adult medical examination with abnormal findings, Z13.220 - Encounter for screening for lipoid disorders, Z13.89 - Encounter for screening for other disorder, Z78.0 - Asymptomatic menopausal state
--- OUTSIDE RECORDS SUMMARY | 2025-02-26 08:01 | XMS_ITS | Data Portability ---
Author Organization DONNA Mcgee [facility], [address] Address [address] [place] [address] Care Team Providers Care Director Of Bands Name Role Phone JANE STODDARD Primary Care Provider Assessment No assessment recorded. Plan of Treatment Reminders Order Date Submit Date Provider Last Modified By Organization Details Last Modified Time Details Appointments None recorded. Lab None recorded. Referral None recorded. Procedures None recorded. Surgeries None recorded. Imaging XR, chest, 2 view 2022 023 [facility], [address] [place], [address], 3 10:38:17 Medication Orders albuterol sulfate 2.5 mg/3 mL (0.083 %) solution for nebulizatio n 2022 023 [facility] #05644, [address] [place], [place], [id number], 3 09:07:24 prednisone 20 mg tablet 2022 023 [email or web address] [facility] #84131, [address] [place], [place], [id number], 3 09:04:52 albuterol sulfate 2.5 mg/3 mL (0.083 %) solution for nebulizatio n 2022 023 [facility] #08565, [address] [place], [place], [id number], 3 09:24:10 albuterol sulfate HFA 90 mcg/actuati on aerosol inhaler 2022 023 [facility] #86707, [address] [place], [place], [id number], 3 09:59:42 Zithromax Z-Jj 250 mg tablet 2022 023 [facility] #48771, [address] [place], [place], [id number], 3 08:19:50 valacyclovi r 1 gram tablet 2022 023 [email or web address] [facility] #86610, [address] [place], [place], [id number], 3 09:33:54 Patient TargetsNo targets recorded. Patient Instructions Encounter Date Encounter Id Patient Instructions Last Modified By Organization Details Last Modified Time 11/26/2022 [id number] shingles: care instructions [email or web address] Not available 11/26/2022 09:18:06 12/26/2022 [id number] cough: care instructions [email or web address] Not available 12/26/2022 09:04:51 bronchitis: care instructions [email or web address] Not available 12/26/2022 09:04:52 reactive airway disease: care instructions [email or web address] Not available 12/26/2022 09:04:52 Use either your albuterol inhaler or nebulizer every every 4 hours as needed for cough, wheezing, shortness of breath. Take the prednisone as prescribed. Rest. Drink plenty of fluids. See printed instructions. Follow-up with your doctor this week. Seek Emergency Medical evaluation for any worsening symptoms. [email or web address] Not available 12/26/2022 08:59:09 Reason for Referral None Reported. Results Created Date Observation Date Name Description Value Unit Range Abnormal Flag Note LastModifiedBy Organization Detail LastModifiedTime 12/23/1912/22/2022 XR, chest , 2 view No observ ation record ed. [email or web address] [facility] [address] [facility] [place], [address], 12/22/2022 10:54:22 Result Notes None recorded. Problems No Known Problems Procedures Surgical History Date Name Laterality Status Provider Name and Address Organization Details Recorded Time 12/27/19 Nebulizer Treatment completed Eloisa Moya MD [address] [facility] [address] [place], [address], [place] - [facility] 12/26/2022 09:22:04 Breast reduction completed CALIXTO ALBRECHT PA - [facility] 12/22/2022 09:33:00 cholecystectomy completed CALIXTO ALBRECHT PA - [facility] 12/22/2022 09:33:16 hysterectomy completed CALIXTO ALBRECHT PA - [facility] 12/22/2022 09:33:11 section completed OLEAN ALBRECHT PA - [facility] 12/22/2022 09:32:36 Imaging Results None recorded. Procedure Notes None recorded. Medical Equipment None Reported. Allergies No known drug allergies Medications Name Sig Start Date Stop Date Status Note LastModified by Organization Details LastModified Time latanoprost 0.005 % eye drops INSTILL 1 DROP IN BOTH EYES EVERY DAY AT BEDTIME active Not Available Not Available No t Available albuterol sulfate 2.5 mg/3 mL (0.083 %) solution for nebulizatio n USE 3 ML VIA NEBULIZER EVERY 4 HOURS NEEDED active Not Available Not Available No t Available valacyclovi r 1 gram tablet TAKE 1 TABLET BY MOUTH EVERY 8 HOURS FOR 7 DAYS 12/22 completed Not Available Not Available Not Available prednisone 20 mg tablet TAKE 2 TABLETS BY MOUTH EVERY DAY FOR 5 DAYS active Not Available Not Available No t Available Zithromax Z-Jj 250 mg tablet TAKE 2 TABLETS (500 MG) BY ORAL ROUTE ONCE DAILY FOR 1 DAY THEN 1 TABLET (250 MG) BY ORAL ROUTE ONCE DAILY FOR 4 DAYS 12/26 completed Not Available Not Available Not Available oxycodone-a cetaminophe n 5 mg-325 mg tablet TAKE 1 TABLET BY MOUTH EVERY 4 TO 6 HOURS FOR PAIN 11/26 completed Not Available Not Available Not Available cephalexin 500 mg capsule TAKE 1 CAPSULE BY MOUTH FOUR TIMES DAILY AFTER SURGERY 11/26 completed Not Available Not Available Not Available dorzolamide 22.3 mg-timolol 6.8 mg/mL eye drops INSTILL ONE DROP IN BOTH EYES TWICE DAILY active Not Available Not Available No t Available albuterol sulfate HFA 90 mcg/actuati on aerosol inhaler INHALE 2 PUFFS BY MOUTH EVERY 4 HOURS active Not Available Not Available No t Available GaviLyte-G 236 gram-22.74 gram-6.74 gram-5.86 gram oral solution TAKE DIRECTED 11/26 completed Not Available Not Available Not Available Vitals Date Recorded Body height Body mass index (BMI) Body weight Oxygen saturation Oxygen saturation in Arterial blood by Pulse oximetry Heart rate Respiratory rate Body temperature Systolic blood pressure Diastolic blood pressure Systolic blood pressure Diastolic blood pressure Provider Name and Address Organization Details Last Updated DateTime 3 152.4 cm 28.9 kg/m2 69799.6 7 g 100 % 100 % 79 /min 16 /min 97.7 [degF] 176 mm[Hg] 106 mm[Hg] 150 mm[Hg] 92 mm[Hg] NANCY CONTI [employer] 3 09:18:14 Date Recorded Body height Body mass index (BMI) Body weight Respiratory rate Oxygen saturation Oxygen saturation in Arterial blood by Pulse oximetry Heart rate Body temperature Systolic blood pressure Diastolic blood pressure Systolic blood pressure Diastolic blood pressure Provider Name and Address Organization Details Last Updated DateTime 3 152.4 cm 27.3 kg/m2 25512.9 3 g 19 /min 98 % 98 % 80 /min 97.8 [degF] 167 mm[Hg] 99 mm[Hg] 146 mm[Hg] 92 mm[Hg] CALIXTO ALBRECHT [employer] 3 09:55:05 Date Recorded Body height Body mass index (BMI) Body weight Respiratory rate Heart rate Oxygen saturation Oxygen saturation in Arterial blood by Pulse oximetry Body temperature Systolic blood pressure Diastolic blood pressure Provider Name and Address Organization Details Last Updated DateTime 3 152.4 cm 27.3 kg/m2 87175.9 3 g 18 /min 94 /min 97 % 97 % 98.1 [degF] 150 mm[Hg] 88 mm[Hg] CATINA Eli PA - [facility] 08:20:48 Social History Question Answer Notes LastModified by Organizat ion Details LastModified Time Tobacco Smoking Status Never Smoker NANCY CONTI ar, [place] - [facility] 11/26/2022 08:36:26 Have You Recently Traveled Abroad? No Information not available 11/26/2022 Sex: Unknown Functional Status Question Answer Note LastModified by Organizat ion Details LastModified Time Do you use any illicit or recreational drugs? No Information not available 11/26/2022 Do you or have you ever used any other forms of tobacco or nicotine? No Information not available 11/26/2022 What is your level of alcohol consumption? None Information not available 11/26/2022 Are you currently employed? No Information not available 11/26/2022 Mental Status None recorded. Family History Relationship Description Onset Age of this Age Resolved Age Notes LastModified by Organization Details LastModified Time Father Diabetes mellitus Not available 2022 08:36:09 Mother Diabetes mellitus Not available 2022 08:36:09 Medical History No medical history recorded. Gynecological HistoryNo gynecological history recorded. Obstetrics History GPAL:G 0 P 0 0 0 0 Immunizations Vaccine Type Date Status Note Provider Nam e and Address Organization Details Recorded Time Influenza, MDCK, quadrivalent, PF 8 completed Not Available [facility] 03/12/2023 21:00:27 Influenza, high-dose, quadrivalent, PF 2 completed Not Available [facility] 03/12/2023 21:00:27 Influenza, adjuvanted, quadrivalent, PF 1 completed Not Available [facility] 03/12/2023 21:00:27 COVID-19, mRNA, LNP-S, PF, 100 mcg/0.5mL dose or 50 mcg/0.25mL dose 1 completed Not Available [facility] 03/12/2023 21:00:27 COVID-19, mRNA, LNP-S, PF, 100 mcg/0.5mL dose or 50 mcg/0.25mL dose 0 completed Not Available [facility] 03/12/2023 21:00:27 Pneumococcal conjugate PCV20, polysaccharide GKE241 conjugate, adjuvant, PF 2 completed Not Available [facility] 03/12/2023 21:00:27 pneumococcal polysaccharide PPV23 9 completed Not Available [facility] 03/12/2023 21:00:27 Tdap 1 completed Not Available [facility] 03/12/2023 21:00:27 Influenza, high-dose, trivalent, PF 6 completed Not Available [facility] 03/12/2023 21:00:27 Influenza, high-dose, trivalent, PF 8 completed Not Available [facility] 03/12/2023 21:00:27 Influenza, split virus, trivalent, preservative 5 completed Not Available [facility] 03/12/2023 21:00:27 Influenza, split virus, quadrivalent, PF 0 completed Not Available [facility] 03/12/2023 21:00:27 Influenza, split virus, quadrivalent, PF 7 completed Not Available [facility] 03/12/2023 21:00:27 Past Encounters Encounter ID Performer Location Encounter Start Date Encounter Closed Date Diagnosis/Indication Diagnosis SNOMED-CT Code Diagnosis ICD10 Code Diagnosis Note [id number] [address] [facility] [address] [place] [phone] 09/16/2018 09:28:32 09/16/2018 10:18:41 [id number] [address] [place] [address] 08/14/2018 08:09:31 08/14/2018 08:36:55 [id number] Ryland Moulton DO [address] [address] [place] [address] 11/26/2022 08:11:42 11/26/2022 09:21:01 Herpes zoster 4050390 B02.9 Rx valtrexrec ommend alternatin g tylenol/ib uPatient advised to follow up as needed for worsening symptoms or no improvemen t. [id number] R[place] Moul[place] [address] [address] 12/22/2022 08:19:58 12/22/2022 10:23:09 Cough 22341283 R05.9 see below Community acquired pneumonia 604428105 J18.9 CXR suggestive of PNARx Abx and albuterol MDITrial of mucinex prn congestion Humidified airrest, fluidstyle nol/ibu prn F/u with PCP next week for recheckf/u CXR in 6 weeks Patient advised to follow up sooner as needed for worsening symptoms or no improvemen t. Discussed concerning red flags with patient and reasons to follow up in the Emergency Department urgently. [id number] Eloisa Moya [place] [address] [phone] 12/26/2022 08:04:05 12/26/2022 09:44:30 Acute bronchitis with bronchospasm 45360890 J20.9 Health Concerns Section Related Observation LastModified by Organization Detai ls LastModified Time None Recorded Concern Status LastModified by Organization Details LastModified Time None Recorded Advance Directives Directive None Recorded Payers Insurance Date Sequence Insurance Name Policy Number Policy Carreon Covered Member ID Carreon Member ID Guarantor Name 11/26/2022 1 [facility] [id number] Samaria Abraham [id number] Samaria Abraham 01/24/2023 1 [facility] (MEDICARE REPLACEMENT/A DVANTAGE - HMO) [id number] Samaria Abraham [id number] Samaria Abraham 11/27/2022 1 [facility] (PPO) [id number] Samaria Abraham [id number] Samaria Abraham Notes Date Note Type Note Provider Name and Address Organization Details Recorded Time 3 text/html UC Rash/Skin LesionReported bypatient.Notes:72 yo female c/o rash under R breaststarted with pain in Rt upper armShe then developed a rash under her Rt breast and now pain radiates to Rt shoulder blade. no f/c/n/v repeat BP 150/90 Ryland Moulton, [address] [place], [address], [place] - [facility] 11/26/2022 09:19:01 3 text/html 72 yo female c/o Cough, headache x 5 d.Covid tested yesterday at home, was negative. non smokerno h/o asthma/COPD No feverNo chillsNo difficulty breathing or respiratory distressNo wheezeNo CPNo ear painNo sore throatNo Abdominal painNo nauseaNo vomitingNp diarrheaNo myalgiaNo fatigueNo rashNo HANo dizzinessNo recent travelNo known sick contacts Ryland Moulton, [address] [place], [address], [place] - [facility] 12/22/2022 10:10:13 3 text/html CoughReported bypatient.source of patient informationInformation obtained from patient; Patient arrived at Urgent Care ambulatory Quality:dry Severity:moderate Duration:constant; 10 days Timing:constant Context:non-smoker; History of bronchitis with wheezing. Modifying Factors:Not much improvement after Z jj and albuterol inhaler. Associated Symptoms:no fever; no chills; no chest pain; no nausea; no vomiting; no edema; no post nasal drip;wheezingNotes:72 year old female presenting for evaluation of persistent coughing and wheezing with chest congestion for the past 10 days. She was seen here 12/22/22 and had a chest xray revealing findings suggestive of reactive airway disease. She was prescribed azithromycin and an albuterol inhaler which have not helped much. She sometimes feels short of breath with the wheezing. No fever, chills, headache, rash, stiff neck, chest pain, GI symptoms or body aches. A home covid test was negative when her symptoms first started. She has been diagnoses with bronchitis in the past with wheezing requiring the use of an inhaler. She is a non-smoker. Eloisa Moya MD [address] [place], [address], [place] - [facility] 12/26/2022 09:25:08 OBGyn Episode No OBEpisode recorded.
[2025-02-26 08:04] VITALS: BP 152/80; PULSE 94; RESP 16; TEMP 36.9; O2SAT 96; BMI 27.9
[2025-02-26 08:45] VITALS: BP 130/80
== END 2025-02-26 08:52 | disposition home or self-care (01) ==
PROVIDERS: PCP Internal Medicine; Visit Provider Internal Medicine
DX: Z00.01 Encounter for general adult medical examination with abnormal findings (principal); R03.0 Elevated blood-pressure reading, without diagnosis of hypertension; Z71.89 Other specified counseling; Z00.00 Encounter for general adult medical examination without abnormal findings